=== PATIENT | male | born 1975 | race Caucasian/White ===

== ENCOUNTER 2017-09-19 09:26 | Inpatient (IN) | payer MEDICARE, OTHER ==
[~2017-09-19] VITALS: Ht 172.7 cm; Wt 88.4 kg
[2017-09-19] MEDS ORDERED: LAMO100T5 PO (09:46)
[2017-09-19] MEDS ORDERED: LEVE100020 PO (09:46)
[2017-09-19] MEDS ORDERED: LEVE500T53 PO (09:46)
[2017-09-19] MEDS ORDERED: LAMO200T3 PO ×2 (09:46)
[2017-09-19] MEDS ORDERED: GABA600T2 PO (09:46)
[2017-09-19] MEDS ORDERED: CBD OIL PO (09:46)
[2017-09-19] MEDS ORDERED: SODIUM CHLORIDE 0.9% 1,000 ML IV ONE (10:20)
[2017-09-19] MEDS ORDERED: MORPHINE SULFATE 4 MG/ML, 1ML IVPush PRN (10:30)
[2017-09-19] MEDS ORDERED: SODIUM CHLORIDE 0.9% 1,000ML IVBOLUS ONE ×2 (10:30→14:00)
[2017-09-19] MEDS ORDERED: SODIUM CHLORIDE FLUSH 10ML SYR IVF ONE (10:30)
[2017-09-19] MEDS ORDERED: ONDANSETRON 2MG/ML, 2ML IVPush ONE (10:30)
[2017-09-19] MEDS ORDERED: ACETAMINOPHEN 500 MG TABLET PO ONE (10:30)
[2017-09-19] MEDS ORDERED: MORPHINE SULFATE 4 MG/ML, 1ML ONE (10:48)
[2017-09-19] MEDS ORDERED: ONDANSETRON 2MG/ML, 2ML ONE (10:48)
[2017-09-19] MEDS ORDERED: ACETAMINOPHEN 500 MG TABLET ONE (10:50)
[2017-09-19 11:37] LABS: MEAN CORPUSCULAR HEMOGLOBIN 31.2 pg (27.5-34.5); MEAN CORPUSCULAR HGB CONC 33.7 g/dL (33.2-36.2); MEAN CORPUSCULAR VOLUME 92.4 fL (81-97); MEAN PLATELET VOLUME 8.5 fL (7.4-10.4); PLATELET COUNT 165 x10^3/uL (130-400); RED BLOOD COUNT 5.42 x10^6/uL (4.38-5.82); RED CELL DISTRIBUTION WIDTH 13.2 % (9.4-14.8)
[2017-09-19 11:39] LABS: INTERNATIONAL NORMALIZED RATIO 1.17 (0.93-1.1)
[2017-09-19 11:52] LABS: ALBUMIN 3.7 g/dL (3.4-5.0); ANION GAP 8 mmol/L (5-15); CALCIUM 9.4 mg/dL (8.5-10.1); CHLORIDE 101 mmol/L (98-107)
[2017-09-19 11:56] LABS: ALANINE AMINOTRANSFERASE 31 U/L (12-78); ALKALINE PHOSPHATASE 102 U/L (45-117); BILIRUBIN,TOTAL 0.8 mg/dL (0.2-1.0); CREATININE 1.09 mg/dL (0.7-1.3); TOTAL PROTEIN 8.3 g/dL (6.4-8.2)
[2017-09-19 12:11] LABS: MD YES
[2017-09-19 12:12] LABS: BANDS%(MANUAL) 5 % (0-7); LYMPH#(MANUAL) 1.59 x10^3/uL (1-3.4); LYMPHS% (MANUAL) 10 % (22-44); MONOS#(MANUAL) 0.32 x10^3/uL (0.3-2.7); MONOS% (MANUAL) 2 % (2-9); SEGS% (MANUAL) 83 % (42-75)
[2017-09-19 12:13] LABS: <PLATELET ESTIMATE> ADEQUATE; <PLT MORPHOLOGY> NORMAL PLT MORPH; <RBC MORPHOLOGY> NORMAL
[2017-09-19] MEDS ORDERED: OMNIPAQUE 350 MG/ML, 100ML BOTTLE ONE (12:52)
[2017-09-19] MEDS ORDERED: CEFTRIAXONE PMX 1GM/50ML 50 ML ONE (13:52)
[2017-09-19] MEDS ORDERED: CEFTRIAXONE 1,000 MG in SODIUM CHLORIDE 0.9% 50 ML IVPB ONE (14:00)
[2017-09-19] MEDS ORDERED: AZITHROMYCIN 500 MG in SODIUM CHLORIDE 0.9% 250 ML IVPB ONE (14:00)
[2017-09-19] MEDS: SODIUM CHLORIDE 0.9% 1,000ML IVBOLUS ONE ×2 (14:34→14:39)
[2017-09-19] MEDS ORDERED: SODIUM CHLORIDE FLUSH 10ML SYR IVF PRN (15:00)
[2017-09-19] MEDS ORDERED: SODIUM CHLORIDE 0.9% 1,000 ML IV SCH (15:16)
[2017-09-19] MEDS ORDERED: ONDANSETRON ODT 4 MG PO PRN (15:30)
[2017-09-19] MEDS ORDERED: POLYETHYLENE GLYCOL 17 GM PACKET PO PRN (15:30)
[2017-09-19] MEDS ORDERED: ONDANSETRON 2MG/ML, 2ML IVPush PRN (15:30)
[2017-09-19 15:41] LABS: FREE T4 (FREE THYROXINE) 1.44 ng/dL (0.76-1.46)
[2017-09-19 16:35] LABS: MICROSCOPIC INDICATED
[2017-09-19 16:46] LABS: CULTURE INDICATED? NO
[2017-09-19] MEDS ORDERED: GABAPENTIN 300 MG CAPSULE ONE (16:55)
[2017-09-19] MEDS ORDERED: LAMOTRIGINE 200 MG TABLET ONE (16:55)
[2017-09-19] MEDS ORDERED: GABAPENTIN 300 MG CAPSULE PO SCH (17:00)
[2017-09-19] MEDS: LAMOTRIGINE 200 MG TABLET PO SCH (17:01)
[2017-09-19 17:10] VITALS: BP 126/89
[2017-09-19] MEDS: AMPICILLIN/SULBACTAM 3 GM in SODIUM CHLORIDE 0.9% 100 ML IV SCH (18:50)
[2017-09-19] MEDS ORDERED: MAGNESIUM SULFATE PMX 2GM/50ML 50 ML IV ONE (19:00)
[2017-09-19] MEDS ORDERED: HEPARIN 25,000 UNITS/500ML PMX 500 ML IV PRN (19:00)
[2017-09-19 20:04] VITALS: BP 123/84
[2017-09-19] MEDS ORDERED: LEVETIRACETAM 500 MG TABLET PO SCH (21:00)
[2017-09-19] MEDS: DOXYCYCLINE 100MG TABLET PO SCH (21:00)
[2017-09-19] MEDS: LAMOTRIGINE 100 MG TABLET PO SCH (21:00)
[2017-09-19] MEDS ORDERED: CANNABIDIOL PO SCH (21:00)
[2017-09-19] MEDS: GABAPENTIN 300 MG CAPSULE PO SCH (21:00)
[2017-09-19 21:16] VITALS: BP 147/106
[2017-09-19 21:50] VITALS: BP 138/57
[2017-09-19] MEDS: SODIUM CHLORIDE 0.9% 1,000 ML IV SCH (22:45)
[2017-09-19] MEDS: ENOXAPARIN 80 MG/0.8 ML SQ SCH (22:54)
[2017-09-20 00:47] VITALS: BP 148/93
[2017-09-20] MEDS: AMPICILLIN/SULBACTAM 3 GM in SODIUM CHLORIDE 0.9% 100 ML IV SCH ×4 (01:07→22:41)
[2017-09-20 05:32] LABS: BASOPHILS # (AUTO) 0.02 x10^3/uL (0-0.1); BASOPHILS % (AUTO) 0 % (0-1); EOSINOPHILS % (AUTO) 0 % (1-7); LYMPHOCYTES # (AUTO) 1.01 x10^3/uL (1-3.4); LYMPHOCYTES % (AUTO) 7 % (22-44); MD NO; MEAN CORPUSCULAR HEMOGLOBIN 31.8 pg (27.5-34.5); MEAN CORPUSCULAR HGB CONC 34.2 g/dL (33.2-36.2); MEAN CORPUSCULAR VOLUME 93.1 fL (81-97); MEAN PLATELET VOLUME 8.3 fL (7.4-10.4); MONOCYTES # (AUTO) 1.02 x10^3/uL (0.2-0.8); MONOCYTES % (AUTO) 7 % (2-9); NEUTROPHILS # (AUTO) 12.38 x10^3/uL (1.8-6.8); NEUTROPHILS % (AUTO) 86 % (42-75); PLATELET COUNT 157 x10^3/uL (130-400); RED BLOOD COUNT 4.98 x10^6/uL (4.38-5.82); RED CELL DISTRIBUTION WIDTH 13.3 % (9.4-14.8)
[2017-09-20 05:42] LABS: CHLORIDE 106 mmol/L (98-107)
[2017-09-20 06:01] LABS: ALANINE AMINOTRANSFERASE 26 U/L (12-78); ALBUMIN 2.9 g/dL (3.4-5.0); ALKALINE PHOSPHATASE 89 U/L (45-117); ANION GAP 8 mmol/L (5-15); BILIRUBIN,TOTAL 0.9 mg/dL (0.2-1.0); CALCIUM 8.2 mg/dL (8.5-10.1); CREATININE 0.61 mg/dL (0.7-1.3); THYROID STIMULATING HORMONE 0.383 mIU/L (0.358-3.740); TOTAL PROTEIN 7.3 g/dL (6.4-8.2)
[2017-09-20 07:21] VITALS: BP 162/100
[2017-09-20] MEDS: SENNA/DOCUSATE TABLET PO SCH (09:00)
[2017-09-20] MEDS ORDERED: LEVETIRACETAM 500 MG TABLET PO SCH (09:00)
[2017-09-20] MEDS: ENOXAPARIN 80 MG/0.8 ML SQ SCH ×2 (09:08→23:15)
[2017-09-20] MEDS: LAMOTRIGINE 100 MG TABLET PO SCH ×2 (09:58→21:00)
[2017-09-20] MEDS: GABAPENTIN 300 MG CAPSULE PO SCH ×3 (10:05→21:00)
[2017-09-20] MEDS: DOXYCYCLINE 100MG TABLET PO SCH (10:10)
[2017-09-20 13:43] VITALS: BP 145/94
[2017-09-20] MEDS: LAMOTRIGINE 200 MG TABLET PO SCH (14:00)
[2017-09-20] MEDS ORDERED: SODIUM PHOSPHATE 4 MEQ/ML IV SCH (16:00)
[2017-09-20] MEDS ORDERED: SODIUM PHOSPHATE 30 MMOL in SODIUM CHLORIDE 0.9% 500 ML IV ONE (16:30)
[2017-09-20] MEDS: DOXYCYCLINE 100 MG in DEXTROSE 5% 250 ML IV SCH (17:51)
[2017-09-20] MEDS ORDERED: LORazepam 2 MG/ML, 1ML IVPush PRN (18:30)
[2017-09-20 18:31] VITALS: BP 159/110
[2017-09-20] MEDS ORDERED: LEVETIRACETAM 1,500 MG in SODIUM CHLORIDE 0.9% 100 ML IV SCH (21:00)
[2017-09-20] MEDS ORDERED: LEVETIRACETAM 1,000 MG in SODIUM CHLORIDE 0.9% 100 ML IV SCH (21:00)
[2017-09-21] VITALS (7 sets, daily range): BP systolic 150–164; BP diastolic 84–114
[2017-09-21] MEDS: LABETALOL 5MG/ML, 20ML IVPush PRN (02:45)
[2017-09-21] MEDS: AMPICILLIN/SULBACTAM 3 GM in SODIUM CHLORIDE 0.9% 100 ML IV SCH ×4 (03:24→21:22)
[2017-09-21] MEDS: DOXYCYCLINE 100 MG in DEXTROSE 5% 250 ML IV SCH ×2 (04:22→16:58)
[2017-09-21 05:38] LABS: BASOPHILS # (AUTO) 0.03 x10^3/uL (0-0.1); BASOPHILS % (AUTO) 0 % (0-1); EOSINOPHILS # (AUTO) 0.01 x10^3/uL (0-0.4); EOSINOPHILS % (AUTO) 0 % (1-7); LYMPHOCYTES % (AUTO) 16 % (22-44); MD NO; MEAN CORPUSCULAR HEMOGLOBIN 31.4 pg (27.5-34.5); MEAN CORPUSCULAR HGB CONC 33.8 g/dL (33.2-36.2); MEAN CORPUSCULAR VOLUME 92.8 fL (81-97); MEAN PLATELET VOLUME 8.4 fL (7.4-10.4); MONOCYTES # (AUTO) 0.63 x10^3/uL (0.2-0.8); MONOCYTES % (AUTO) 7 % (2-9); NEUTROPHILS # (AUTO) 6.74 x10^3/uL (1.8-6.8); NEUTROPHILS % (AUTO) 77 % (42-75); PLATELET COUNT 194 x10^3/uL (130-400); RED BLOOD COUNT 4.68 x10^6/uL (4.38-5.82); RED CELL DISTRIBUTION WIDTH 13.2 % (9.4-14.8)
[2017-09-21 05:42] LABS: ALBUMIN 2.9 g/dL (3.4-5.0); ANION GAP 8 mmol/L (5-15); CHLORIDE 106 mmol/L (98-107)
[2017-09-21 05:43] LABS: CREATININE 0.56 mg/dL (0.7-1.3)
[2017-09-21] MEDS: [UNRECOGNIZED DRUG - OTHER] PO SCH ×2 (09:00→21:00)
[2017-09-21] MEDS ORDERED: LEVETIRACETAM 1,000 MG in SODIUM CHLORIDE 0.9% 100 ML IVPB SCH (09:00)
[2017-09-21] MEDS: GABAPENTIN 300 MG CAPSULE PO SCH ×3 (09:00→21:23)
[2017-09-21] MEDS: ENOXAPARIN 80 MG/0.8 ML SQ SCH ×2 (09:00→21:22)
[2017-09-21] MEDS: LAMOTRIGINE 100 MG TABLET PO SCH ×2 (09:00→21:17)
[2017-09-21] MEDS ORDERED: LEVETIRACETAM 1,500 MG in SODIUM CHLORIDE 0.9% 100 ML IV SCH (09:00)
[2017-09-21] MEDS: CANNABIDIOL PO SCH ×2 (09:00→21:00)
[2017-09-21] MEDS: SENNA/DOCUSATE TABLET PO SCH (09:00)
[2017-09-21] MEDS ORDERED: LEVETIRACETAM 500 MG in SODIUM CHLORIDE 0.9% 100 ML IVPB SCH (09:00)
[2017-09-21] MEDS: SODIUM CHLORIDE 0.9% 1,000 ML IV SCH (11:27)
[2017-09-21] MEDS ORDERED: POTASSIUM CHLORIDE 40 MEQ in SODIUM CHLORIDE 0.9% 500 ML IV ONE (11:30)
[2017-09-21] MEDS ORDERED: WARFARIN HIGH DOSE PROTOCOL XX SCH (12:00)
[2017-09-21] MEDS ORDERED: LORazepam 2 MG/ML, 1ML IVPush ONE (13:30)
[2017-09-21] MEDS: LAMOTRIGINE 200 MG TABLET PO SCH (16:03)
[2017-09-21] MEDS ORDERED: LEVETIRACETAM 1,000 MG in SODIUM CHLORIDE 0.9% 100 ML IV SCH (16:30)
[2017-09-21] MEDS ORDERED: WARFARIN 10 MG TABLET PO-COUM SCH (18:00)
[2017-09-21] MEDS ORDERED: WARFARIN 5 MG TABLET PO-COUM ONE (18:15)
[2017-09-21 19:33] LABS: PROTHROMBIN TIME 10.3 Seconds (9.6-11.5)
[2017-09-21] MEDS ORDERED: WARFARIN 10 MG TABLET PO-COUM ONE (20:30)
[2017-09-21] MEDS ORDERED: LEVETIRACETAM 500 MG in SODIUM CHLORIDE 0.9% 100 ML IV SCH (21:00)
[2017-09-21] MEDS: LEVETIRACETAM 1,000 MG in SODIUM CHLORIDE 0.9% 100 ML IV SCH (21:21)
[2017-09-22] VITALS (8 sets, daily range): BP systolic 141–161; BP diastolic 90–109
[2017-09-22] MEDS: AMPICILLIN/SULBACTAM 3 GM in SODIUM CHLORIDE 0.9% 100 ML IV SCH ×4 (02:28→22:44)
[2017-09-22] MEDS: LABETALOL 5MG/ML, 20ML IVPush PRN ×2 (02:29→09:23)
[2017-09-22] MEDS: DOXYCYCLINE 100 MG in DEXTROSE 5% 250 ML IV SCH ×2 (04:19→16:57)
[2017-09-22 05:45] LABS: INTERNATIONAL NORMALIZED RATIO 1.04 (0.93-1.1); PROTHROMBIN TIME 10.7 Seconds (9.6-11.5)
[2017-09-22 05:48] LABS: BASOPHILS # (AUTO) 0.03 x10^3/uL (0-0.1); BASOPHILS % (AUTO) 0 % (0-1); EOSINOPHILS # (AUTO) 0.02 x10^3/uL (0-0.4); EOSINOPHILS % (AUTO) 0 % (1-7); LYMPHOCYTES # (AUTO) 1.99 x10^3/uL (1-3.4); LYMPHOCYTES % (AUTO) 31 % (22-44); MD NO; MEAN CORPUSCULAR HEMOGLOBIN 30.9 pg (27.5-34.5); MEAN CORPUSCULAR HGB CONC 33.5 g/dL (33.2-36.2); MONOCYTES # (AUTO) 0.62 x10^3/uL (0.2-0.8); MONOCYTES % (AUTO) 10 % (2-9); NEUTROPHILS # (AUTO) 3.76 x10^3/uL (1.8-6.8); NEUTROPHILS % (AUTO) 59 % (42-75); PLATELET COUNT 235 x10^3/uL (130-400)
[2017-09-22 05:49] LABS: CHLORIDE 106 mmol/L (98-107)
[2017-09-22 05:50] LABS: ANION GAP 7 mmol/L (5-15); CALCIUM 8.7 mg/dL (8.5-10.1); CREATININE 0.66 mg/dL (0.7-1.3)
[2017-09-22] MEDS: LEVETIRACETAM 500 MG in SODIUM CHLORIDE 0.9% 100 ML IV SCH (08:48)
[2017-09-22] MEDS: [UNRECOGNIZED DRUG - OTHER] PO SCH ×2 (09:24→21:00)
[2017-09-22] MEDS: SENNA/DOCUSATE TABLET PO SCH (09:24)
[2017-09-22] MEDS: LAMOTRIGINE 100 MG TABLET PO SCH ×2 (09:24→22:24)
[2017-09-22] MEDS: CANNABIDIOL PO SCH ×2 (09:24→21:00)
[2017-09-22] MEDS ORDERED: LORazepam 2 MG/ML, 1ML IVPush PRN (09:30)
[2017-09-22] MEDS: POTASSIUM CHLORIDE 10% 40 MEQ/30 ML UDC PO SCH ×2 (09:48→22:25)
[2017-09-22] MEDS: AMLODIPINE 5 MG TABLET PO SCH (09:48)
[2017-09-22] MEDS: GABAPENTIN 250 MG/5 ML ORAL SOL PO SCH ×3 (09:48→22:28)
[2017-09-22] MEDS: ENOXAPARIN 100 MG/ML SQ SCH ×2 (09:51→22:25)
[2017-09-22] MEDS ORDERED: WARFARIN HIGH DOSE PROTOCOL XX SCH (12:00)
[2017-09-22] MEDS: LAMOTRIGINE 200 MG TABLET PO SCH (14:21)
[2017-09-22] MEDS: LEVETIRACETAM 1,000 MG in SODIUM CHLORIDE 0.9% 100 ML IV SCH (22:20)
[2017-09-23 00:47] VITALS: BP 154/105
[2017-09-23] MEDS: LABETALOL 5MG/ML, 20ML IVPush PRN (01:04)
[2017-09-23 02:09] VITALS: BP 131/86
[2017-09-23] MEDS: AMPICILLIN/SULBACTAM 3 GM in SODIUM CHLORIDE 0.9% 100 ML IV SCH ×4 (04:22→21:54)
[2017-09-23] MEDS: DOXYCYCLINE 100 MG in DEXTROSE 5% 250 ML IV SCH ×2 (05:01→17:04)
[2017-09-23 05:11] LABS: INTERNATIONAL NORMALIZED RATIO 1.16 (0.93-1.1)
[2017-09-23 05:11] LABS: BASOPHILS # (AUTO) 0.05 x10^3/uL (0-0.1); BASOPHILS % (AUTO) 1 % (0-1); EOSINOPHILS # (AUTO) 0.04 x10^3/uL (0-0.4); EOSINOPHILS % (AUTO) 0 % (1-7); LYMPHOCYTES # (AUTO) 2.49 x10^3/uL (1-3.4); LYMPHOCYTES % (AUTO) 27 % (22-44); MD NO; MEAN CORPUSCULAR HEMOGLOBIN 30.9 pg (27.5-34.5); MEAN CORPUSCULAR HGB CONC 33.2 g/dL (33.2-36.2); MEAN PLATELET VOLUME 7.7 fL (7.4-10.4); MONOCYTES # (AUTO) 0.87 x10^3/uL (0.2-0.8); MONOCYTES % (AUTO) 9 % (2-9); NEUTROPHILS # (AUTO) 5.82 x10^3/uL (1.8-6.8); NEUTROPHILS % (AUTO) 63 % (42-75); PLATELET COUNT 254 x10^3/uL (130-400); RED BLOOD COUNT 4.95 x10^6/uL (4.38-5.82); RED CELL DISTRIBUTION WIDTH 13.2 % (9.4-14.8)
[2017-09-23 05:17] LABS: CHLORIDE 106 mmol/L (98-107)
[2017-09-23 05:22] LABS: CALCIUM 8.5 mg/dL (8.5-10.1); CREATININE 0.62 mg/dL (0.7-1.3)
[2017-09-23 05:59] LABS: ANION GAP 8 mmol/L (5-15)
[2017-09-23 06:31] VITALS: BP 148/97
[2017-09-23] MEDS: [UNRECOGNIZED DRUG - OTHER] PO SCH ×2 (09:30→21:00)
[2017-09-23] MEDS: GABAPENTIN 250 MG/5 ML ORAL SOL PO SCH ×3 (09:30→21:30)
[2017-09-23] MEDS: CANNABIDIOL PO SCH ×2 (09:30→21:00)
[2017-09-23] MEDS: LEVETIRACETAM 500 MG in SODIUM CHLORIDE 0.9% 100 ML IV SCH (10:28)
[2017-09-23] MEDS: SENNA/DOCUSATE TABLET PO SCH (10:28)
[2017-09-23] MEDS: LAMOTRIGINE 100 MG TABLET PO SCH ×2 (10:29→20:59)
[2017-09-23] MEDS: AMLODIPINE 5 MG TABLET PO SCH (10:29)
[2017-09-23] MEDS ORDERED: ENOXAPARIN 80 MG/0.8 ML SQ SCH (10:30)
[2017-09-23 12:22] VITALS: BP 142/91
[2017-09-23] MEDS: LAMOTRIGINE 200 MG TABLET PO SCH (15:47)
[2017-09-23] MEDS: RIVAROXABAN 15 MG TABLET PO SCH (17:04)
[2017-09-23 18:46] VITALS: BP 152/88
[2017-09-23] MEDS: LEVETIRACETAM 1,000 MG in SODIUM CHLORIDE 0.9% 100 ML IV SCH (20:57)
[2017-09-24 02:00] VITALS: BP 131/87
[2017-09-24] MEDS: AMPICILLIN/SULBACTAM 3 GM in SODIUM CHLORIDE 0.9% 100 ML IV SCH ×4 (02:54→21:15)
[2017-09-24] MEDS: DOXYCYCLINE 100 MG in DEXTROSE 5% 250 ML IV SCH ×2 (04:09→15:55)
[2017-09-24 05:01] LABS: BASOPHILS % (AUTO) 0 % (0-1); EOSINOPHILS # (AUTO) 0.07 x10^3/uL (0-0.4); EOSINOPHILS % (AUTO) 1 % (1-7); LYMPHOCYTES % (AUTO) 25 % (22-44); MD NO; MEAN CORPUSCULAR HEMOGLOBIN 30.8 pg (27.5-34.5); MEAN CORPUSCULAR HGB CONC 33.2 g/dL (33.2-36.2); MEAN CORPUSCULAR VOLUME 92.7 fL (81-97); MEAN PLATELET VOLUME 7.6 fL (7.4-10.4); MONOCYTES # (AUTO) 0.52 x10^3/uL (0.2-0.8); MONOCYTES % (AUTO) 5 % (2-9); NEUTROPHILS # (AUTO) 6.84 x10^3/uL (1.8-6.8); NEUTROPHILS % (AUTO) 69 % (42-75); PLATELET COUNT 258 x10^3/uL (130-400); RED BLOOD COUNT 5.07 x10^6/uL (4.38-5.82); RED CELL DISTRIBUTION WIDTH 13.3 % (9.4-14.8)
[2017-09-24 05:05] LABS: INTERNATIONAL NORMALIZED RATIO 1.04 (0.93-1.1); PROTHROMBIN TIME 10.8 Seconds (9.6-11.5)
[2017-09-24 05:08] LABS: ANION GAP 6 mmol/L (5-15); CALCIUM 8.8 mg/dL (8.5-10.1); CHLORIDE 105 mmol/L (98-107); CREATININE 0.74 mg/dL (0.7-1.3)
[2017-09-24 07:55] VITALS: BP 149/97
[2017-09-24] MEDS: SENNA/DOCUSATE TABLET PO SCH (09:17)
[2017-09-24] MEDS: GABAPENTIN 250 MG/5 ML ORAL SOL PO SCH ×3 (09:36→20:32)
[2017-09-24] MEDS: LEVETIRACETAM 500 MG in SODIUM CHLORIDE 0.9% 100 ML IV SCH (09:36)
[2017-09-24] MEDS: CANNABIDIOL PO SCH ×2 (09:37→20:32)
[2017-09-24] MEDS: RIVAROXABAN 15 MG TABLET PO SCH ×2 (09:37→17:46)
[2017-09-24] MEDS: [UNRECOGNIZED DRUG - OTHER] PO SCH ×2 (09:37→20:32)
[2017-09-24] MEDS: AMLODIPINE 5 MG TABLET PO SCH (09:37)
[2017-09-24] MEDS: LAMOTRIGINE 100 MG TABLET PO SCH ×2 (09:37→20:32)
[2017-09-24 12:58] VITALS: BP 126/89
[2017-09-24] MEDS: LAMOTRIGINE 200 MG TABLET PO SCH (14:18)
[2017-09-24 20:00] VITALS: BP 145/89
[2017-09-24] MEDS: LEVETIRACETAM 1,000 MG in SODIUM CHLORIDE 0.9% 100 ML IV SCH (20:32)
[2017-09-25 02:00] VITALS: BP 146/89
[2017-09-25] MEDS: AMPICILLIN/SULBACTAM 3 GM in SODIUM CHLORIDE 0.9% 100 ML IV SCH ×2 (02:26→10:59)
[2017-09-25] MEDS: DOXYCYCLINE 100 MG in DEXTROSE 5% 250 ML IV SCH (03:17)
[2017-09-25 05:29] LABS: BASOPHILS # (AUTO) 0.03 x10^3/uL (0-0.1); BASOPHILS % (AUTO) 0 % (0-1); EOSINOPHILS % (AUTO) 1 % (1-7); LYMPHOCYTES # (AUTO) 2.93 x10^3/uL (1-3.4); LYMPHOCYTES % (AUTO) 25 % (22-44); MD NO; MEAN CORPUSCULAR HEMOGLOBIN 30.9 pg (27.5-34.5); MEAN CORPUSCULAR HGB CONC 33.2 g/dL (33.2-36.2); MEAN CORPUSCULAR VOLUME 92.9 fL (81-97); MEAN PLATELET VOLUME 7.9 fL (7.4-10.4); MONOCYTES # (AUTO) 0.69 x10^3/uL (0.2-0.8); MONOCYTES % (AUTO) 6 % (2-9); NEUTROPHILS # (AUTO) 8.05 x10^3/uL (1.8-6.8); NEUTROPHILS % (AUTO) 68 % (42-75); PLATELET COUNT 269 x10^3/uL (130-400); RED BLOOD COUNT 5.11 x10^6/uL (4.38-5.82); RED CELL DISTRIBUTION WIDTH 13.2 % (9.4-14.8)
[2017-09-25 05:38] LABS: INTERNATIONAL NORMALIZED RATIO 1.06 (0.93-1.1); PROTHROMBIN TIME 10.9 Seconds (9.6-11.5)
[2017-09-25 05:42] LABS: ALBUMIN 3.1 g/dL (3.4-5.0); ANION GAP 6 mmol/L (5-15); CHLORIDE 104 mmol/L (98-107); CREATININE 0.73 mg/dL (0.7-1.3)
[2017-09-25] MEDS: CANNABIDIOL PO SCH (07:00)
[2017-09-25] MEDS: [UNRECOGNIZED DRUG - OTHER] PO SCH (07:00)
[2017-09-25 07:24] VITALS: BP 140/91
[2017-09-25] MEDS: SENNA/DOCUSATE TABLET PO SCH (08:27)
[2017-09-25] MEDS: GABAPENTIN 250 MG/5 ML ORAL SOL PO SCH (08:53)
[2017-09-25] MEDS: AMLODIPINE 5 MG TABLET PO SCH (08:54)
[2017-09-25] MEDS: LAMOTRIGINE 100 MG TABLET PO SCH (08:54)
[2017-09-25] MEDS: RIVAROXABAN 15 MG TABLET PO SCH (08:54)
[2017-09-25] MEDS: LEVETIRACETAM 500 MG in SODIUM CHLORIDE 0.9% 100 ML IV SCH (08:54)
[2017-09-25 13:01] VITALS: BP 133/93
[2017-09-25] MEDS: LAMOTRIGINE 200 MG TABLET PO SCH (14:00)
[2017-09-25] MEDS ORDERED: AMOX1TAB64 PO (14:09)
[2017-09-25] MEDS ORDERED: DOXY100T PO (14:09)
[2017-09-25] MEDS ORDERED: AMLO5TAB2 PO (14:09)
[2017-09-25] MEDS ORDERED: RIVA15TA PO (14:09)
[2017-10-15] MEDS ORDERED: RIVAROXABAN 20 MG TABLET PO SCH (09:00)
== END 2017-09-25 16:43 | disposition home health service (06) | DRG 871 ==
LOC: ED 13:57 → EDIP 14:31 → 4NOR 16:15 → 4WST 20:49
PROVIDERS: ADMIT Hospitalist; ATTEND Hospitalist
DX: A41.9 Sepsis, unspecified organism (principal); I26.99 Other pulmonary embolism without acute cor pulmonale; J69.0 Pneumonitis due to inhalation of food and vomit; J96.01 Acute respiratory failure with hypoxia; J98.11 Atelectasis; E83.42 Hypomagnesemia; E86.0 Dehydration; G40.309 Generalized idiopathic epilepsy and epileptic syndromes, not intractable, without status epilepticus; G80.9 Cerebral palsy, unspecified; K40.20 Bilateral inguinal hernia, without obstruction or gangrene, not specified as recurrent; N43.3 Hydrocele, unspecified; R13.10 Dysphagia, unspecified; R65.20 Severe sepsis without septic shock; Q24.8 Other specified congenital malformations of heart
CPT/HCPCS: 36415; 70450; 71045; 74177; 74230; 80048; 80053; 80175; 80177; 81001; 82040; 82962; 83605; 83690; 83735; 84100; 84145; 84439; 84443; 85025; 85610; 85730; 87040; 87070; 87077; 87205; 93306; 93970; 96365; 96366; 96367; 96375; 99285; J0295; J0456; J0696; J1650; J1953; J2405; J3480; J7060; Q9967; J2060; J3475; J7030; J7040; J7050